=== PATIENT | female | born 1985 | race African-American/Black ===

== ENCOUNTER 2018-06-20 06:01 | Inpatient (IN) | payer OTHER ==
[~2018-06-20] VITALS: Ht 167.6 cm; Wt 88.5 kg
--- NOTE | 2018-06-20 09:39 | Operative Report ---
Operative/Inv Procedure Report Surgery Date: 06/20/18 Name of Procedure: Repeat low transverse section Via Pfannenstiel Bilateral tubal ligation Pre-Operative Diagnosis: G2 para 1, 39 weeks plus 3 days intrauterine , prior section, patient desires permanent sterilization Post-Operative Diagnosis: Same Estimated Blood Loss: 600ML Surgeon/Pulp Operator: Aleksey REARDON,Kiana Walker Anesthesia: SPINAL IV Fluids: 1600 mL of lactated Ringer's Urine Output: 450 mL clear urine and the end of procedure Specimens: Portion of right and left tubes Complications: None Condition: Stable Operative Indication: 32-year-old G2 para 1 at 39 weeks intrauterine , prior section , patient desires repeat section and bilateral tubulization Operative/Procedure Note Note: The patient was taken to the operating room where spinal anesthesia was found to be adequate. She was then prepared and draped in the normal sterile fashion in the dorsal supine position with a leftward tilt. A Pfannenstiel skin incision was then made with a scalpel and carried through to the underlying layer of the fascia with the Bovie. The fascia was incised in the midline and the incision extended laterally with the Bovie. The inferior aspect of this fascial incision , which then grasped with Kassie clamps, elevated, and underlying rectus muscle dissected off bluntly. Attention was then turned to the superior aspect of this fascial incision which, in a similar fashion, was grasped, tented up with the Kassie clamps, Rectus muscle dissected off with scalpel. The rectus muscle was then in the midline, and the peritoneum identified, tented up, and entered sharply with the Metzenbaum scissors. The peritoneum incision was then extended superiorly and inferiorly with good visualization of the bladder. The bladder blade was then inserted and the vesicouterine peritoneum identified, grasped with pickups and entered sharply with the Metzenbaum scissors. The incision with then extended laterally and bladder flap created digitally. The bladder blade was then reinserted and the lower uterine segment incised in a transverse fashion with the scalpel. The uterine incision was then extended laterally, the bladder blade was removed and the 's head delivered atraumatically. The nose and mouth was suctioned with the suction bulb, clamped and cut. The was handed off to the waiting pediatricians. The placenta was then removed manually, uterus exteriorized, and clear of all clots and debris. The uterine incision was then repaired with 0 Vicryl in a running locked fashion. A second layer of the same suture was used to obtain excellent hemostasis. Attention was then turned to the left tube, a Babb clamp was used to grasp in the middle portion of the tube, modified Clifford method was used to ligate left tube, small mesentery bleeding was noted, 2-0 Vicryl suture was used to achieve excellent hemostasis. Same method was used to ligate the right tube, hemostasis assured. The uterus then returned to the abdomen. The gutters were cleared of all clots, 1 g of Sujatha was placed along the uterine incision site .and the peritoneum closed with 3-0 Vicryl, 2-0 Vicryl was used to reapproximated rectus muscle, the fascia was reapproximated with 0 Vicryl in a running fashion. 3 -O plain suture was used to reapproximate subcutaneous adipose tissue, the skin was closed with 4-0 Monocryl subcuticularly. The patient tolerated the procedure well. Sponge, lap and needle counts were correct 2. The patient was taken to the recovery room in stable condition. Findings: Live male in cephalic presentation, BRANDO position, pediatrics present at delivery. 9 and 9, weight 7 lbs. 11 oz. Normal uterus, tubes and ovaries.
[2018-06-20 23:38] VITALS: BP 120/74
--- NOTE | 2018-06-21 09:44 | PN- Post Delivery/GYN ---
Subjective Subjective: feeling well Review of Systems Constitutional: Reports: no symptoms. Denies: chills, fever. EENTM: Denies: blurred vision, double vision, visual changes. Cardiovascular: Denies: chest pain. Respiratory: Denies: cough. Gastrointestinal: Denies: diarrhea, nausea, vomiting. Neurological/Psychological: Denies: anxiety, depressed. Objective Last 24 Hrs of Vital Signs/I&O vss Vital Signs Date Time Temp Pulse Resp B/P B/P Pulse O2 O2 Flow FiO2 Mean Ox Delivery Rate 06/20 2338 120/74 Physical Exam General Appearance Alert, Oriented X3, Cooperative, No Acute Distress Cardiovascular Regular Rate Lungs Clear to Auscultation Abdomen Soft, incision clean and dry Last 24 Hrs of Labs/Gregory: Laboratory Tests 06/21/18 0927: CBC w Diff Pending, WBC Pending, RBC Pending, Hgb Pending, Hct Pending, MCV Pending, MCH Pending, MCHC Pending, RDW Pending, Plt Count Pending, MPV Pending Assessment/Plan Assessment/Plan pod #1 vss afebrile Problem List: 1. Attending MD Review Statement Attending Statement Attending MD Statement: examined this patient, discussed with family, discussed with nursing
[2018-06-21 09:50] LABS: ABSOLUTE BASOPHIL COUNT 0 /CUMM (0.0-0.2); ABSOLUTE EOSINOPHIL COUNT 0 /CUMM (0.0-0.7); ABSOLUTE GRANULOCYTE CT 4.8 /CUMM (1.4-6.5); ABSOLUTE LYMPH COUNT 1.6 /CUMM (1.2-3.4); ABSOLUTE MONOCYTE COUNT 0.6 /CUMM (0.10-0.60); BASOPHIL % 0.2 % (0.0-2.0); EOSINOPHIL % 0.4 % (0-5); GRANULOCYTE % 67.8 % (42.2-75.2); HEMATOCRIT 34.2 % (37-47); MEAN CORPUSCULAR HGB 30.3 PG (27.0-31.0); MEAN CORPUSCULAR HGB CONC 33.2 G/DL (33.0-37.0); MEAN CORPUSCULAR VOLUME 91.3 FL (81.0-99.0); MEAN PLATELET VOLUME 9.2 FL (7.4-10.4); PLATELET COUNT 188 /CUMM (130-400); RBC DISTRIBUTION WIDTH 14.9 % (11.5-14.5); RED BLOOD CELL CT 3.75 /CUMM (4.20-5.40); WHITE BLOOD CELL COUNT 7.1 /CUMM (4.8-10.8)
--- NOTE | 2018-06-22 10:21 | PN- OBGYN ---
Surgical Brief Attending Note Brief Attending Note: pt feeling well. pain well controlled. amb / void / linda po. no flatus. afeb, v/ss nad abd soft nt nd ff inc c/d/i kristin min lochia ext nt no ed a/p pod 2 s/p rpt c/s / btl, doing well -enc oob / amb -pain mgmt, simethicone -routine pop care
--- NOTE | 2018-06-23 06:05 | PN- OBGYN ---
Surgical Brief Attending Note Brief Attending Note: POD 3 Feels ready to go home. Pain controlled well with PO meds. Tolerating POs. +void without difficulty. +flatus, no BM yet. working well. Understands circumcision care. afebrile, VS normal Breasts - engorged, no mass or tenderness Abd - soft, NT Fundus - firm, NT Incision - C/D/I, steri-strips intact Perineum - dry Extr - benign A: stable s/p C/S and BTL. P: discharge home today, instructions reviewed to office in 2 weeks approx. for incision check postop precautions reviewed, pt aware 24/ ans. service
--- NOTE | 2018-06-23 06:06 | Surgical Discharge Summary ---
Visit Information Visit Dates Admission Date: 06/20/18 Discharge Date: 06-23-18 History of Present Illness Chief Complaint: s/p repeat C/S and BTL Medical History Isolation History: Standard Psychosocial History What is Your Primary Language? Swedish Hospital Course Allergies: Coded Allergies: No Known Allergies (06/20/18)
--- NOTE | 2018-06-24 12:35 | Discharge Summary ---
Visit Information Visit Dates Admission Date: 06/20/18 Discharge Date: 06/23/18 Hospital Course Course Attending Physician: Kiana Ryder MD Primary Care Physician: Unknown Hospital Course: 32yo, term , prior , patient desires permanent sterilization. She was admitted for elective repeat section plus bilateral tubal ligation. Patient tolerated the surgery well, she delivered a viable male infant at cephalic presentation without complications. During the hospital stay , patient remained in stable condition, she tolerated diet, void without difficulties, ambulating well. On exam, vitals are stable, abdomen soft, nontender, uterus firm, fundus below umbilicus, incision dry clean intact. She was discharged on postoperative day 3 with instructions given Complications: None Allergies: Coded Allergies: No Known Allergies (06/20/18) Significant Procedures: Repeat low transverse section via Pfannenstiel Bilateral tubal ligation Disposition Summary Disposition Principal Diagnosis: Term , prior section, patient desires permanent sterilization Additional Diagnosis: None Discharge Disposition: home or self care Discharge Instructions General Discharge Information Code Status: Full Code Patient's Diet: Regular Patient's Activity: As tolerated Follow-Up Instructions/Appts: Follow-up in office in 2 weeks and 6 weeks, Pelvic rest and no heavy lifting for 6 weeks Copies To: Kiana Ryder MD Attending MD Review Statement Documenting Attending: Kiana Ryder MD
== END 2018-06-23 11:15 | DRG 766 ==
LOC: GNO 06:01 → SDA 07:00 → GNO 11:51
PROVIDERS: Obstetrics & Gynecology
PROC: 10D00Z1 Extraction of Products of Conception, Low, Open Approach (ICD-10-PCS; principal; 2018-06-20)
PROC: 0UT70ZZ Resection of Bilateral Fallopian Tubes, Open Approach (ICD-10-PCS; principal; 2018-06-20)
DX: O34.211 Maternal care for low transverse scar from previous cesarean delivery (principal); Z37.0 Single live birth; N85.8 Other specified noninflammatory disorders of uterus; Z3A.39 39 weeks gestation of pregnancy; Z30.2 Encounter for sterilization
CPT/HCPCS: GNOS; 36415; 87086; 88302; J0131; J0690; J1650; J1885; J7120